=== PATIENT | male | born 1980 | race Caucasian/White ===

== ENCOUNTER 2025-07-14 10:13 | Day surgery (SDC) | payer BC, SELFPAY ==
--- NOTE | 2025-07-10 07:11 | EXP.HP ---
History of Present Illness *Admission Date: 07/14/25 *History of present illness: Mr. Faria is a 44-year-old gentleman who is here for diagnostic EGD. The patient does report epigastric abdominal pain. He did have panendoscopy in 2014 and at that time was diagnosed with H. pylori. He underwent antibiotic treatment for the H. pylori and failed to eradicate. More recently, he had been following with Dr. Daniel Albarran and had multiple positive testing for H. pylori and was seen by infectious disease for recurrent/resistant H. pylori. He does have occasional heartburn/reflux symptoms and takes omeprazole as needed. At the time of his colonoscopy in 2014, he had no polyps and will not need screening until age 47. The examination is deemed medically necessary for diagnostic EGD. The patient has been seen, interviewed and examined prior to the procedure by both myself and the anesthesia provider. [facility] Disclaimer: The information contained in this section may have been updated after the patient was seen, as this information can be updated by other users. Medical History Scoliosis Surgical History Hx of appendectomy History of spinal fusion Family History Grandmother Diabetes Grandmother Cancer Grandmother Heart problem Kidney disease Social History (Updated 07/14/25 @ 11:54 by Yunier Maurer CRNA) Smoking Status: Current every day smoker tobacco type: e-cigarettes alcohol intake: never substance use type: denies use current occupational status: employed Travel in the last 8 weeks?: None Have you lived/traveled outside [place] in past 30 days?: No Contact w/someone who lives/traveled outside [place] past 30 days?: No Exposure to someone with infectious disease in past 14 days?: No Do you have a fever (greater than 100.4 F or 38 C)?: No Have you tested positive for COVID-19?: No Exposed to someone with COVID-19 in past 14 days?: No Do you have a sore throat?: No Do you have a cough?: No Do you have any weakness?: No Are you experiencing any nausea/vomitting?: No Do you have any diarrhea?: No Are you experiencing any unusual bleeding?: No Do you have any muscle aches/pain?: No Do you have any abdominal pain?: No Are you experiencing loss of taste or smell?: No Review of Systems Review of Systems Review of systems (narrative): Negative *Cardiovascular Comments: Negative *Gastrointestinal Comments: Negative *Genitourinary Comments: Negative *Musculoskeletal Comments: Negative *Neurologic Comments: Negative Meds Home Medications and Allergies Home Medications ?Medication ?Instructions ?Recorded ?Confirmed ?Type aspirin 81 mg tablet 81 mg PO DAILY 05/19/25 07/14/25 History atorvastatin 20 mg tablet 20 mg PO DAILY 07/11/25 07/14/25 History New Prescriptions to Start Prescriptions: Allergies Allergy/AdvReac Type Severity Reaction Status Date / Time clarithromycin AdvReac Severe Vomiting Verified 07/14/25 11:18 Exam *Routine HEENT Exam Head: Present normocephalic Eye: Present EOMI and PERRL ENT: Present mucous membranes moist *Routine Neck Exam Neck: Present supple *Routine Respiratory Exam Respiratory: Present CTA bilaterally *Routine Cardiovascular Exam Cardiovascular: Present RRR *Routine Abdominal Exam Abdominal: Present soft and normoactive bowel sounds; Absent tenderness *Routine Rectal Exam Rectal:: deferred *Routine Genitalia Exam Genitalia:: deferred *Routine Extremities Exam Extremities: Absent cyanosis, clubbing or edema *Routine Skin Exam Skin: Present warm; Absent rash *Routine Neurological Exam Neurological: Present alert and oriented X3 Assessment and Plan *Assessment and plan (1) Epigastric pain: Status: Acute Category: Medical Code(s): R10.13 - Epigastric pain (2) History of Helicobacter pylori infection: Status: Acute Category: Medical Code(s): Z86.19 - Personal history of other infectious and parasitic diseases Plan A/P: 1. Epigastric pain with history of resistant H. pylori infection is the preprocedural diagnosis. The patient will be anesthetized/sedated using MAC sedation. The patient has been seen and examined. Cardiac and lung assessment prior to the examination is stable. Proceed with planned diagnostic EGD.
[2025-07-11 11:54] VITALS: BMI 21.1
--- NOTE | 2025-07-14 07:20 | HMH.PROCNOTE ---
[facility] Procedure Note Date: 07/14/25 Time: 12:59 Procedure Note:: Upper Endoscopy Procedure Report: Esophagogastroduodenoscopy with cold biopsies Endoscopost: Jovan Tran II, MD Referring Physician: Dr. Aguiar Date of Procedure: July 14, 2025 Equipment: Olympus GIF-1100 standard upper endoscope Sedation: MAC sedation Indications: Mr. Faria is a 44-year-old gentleman who is here for diagnostic EGD. The patient does get some right upper quadrant abdominal pain intermittently. He does report rare heartburn. He has no dysphagia. He did have panendoscopy in 2014 (Dr. Griffin in [place]) and at that time was diagnosed with H. pylori. He underwent antibiotic treatment for the H. pylori and failed to eradicate. More recently, he had been following with Dr. Daniel Albarran and had multiple positive testing for H. pylori (by H. pylori stool testing and H. pylori breath testing) and was seen by infectious disease for recurrent/resistant H. pylori. He does have occasional heartburn/reflux symptoms and takes omeprazole as needed. At the time of his colonoscopy in 2014, he had no polyps and will not need screening until age 47. The examination is deemed medically necessary for diagnostic EGD. Procedure: Prior to the procedure, a history and physical exam was performed, and patient's medications and allergies were reviewed. The risks, benefits and alternatives of the sedation and procedure were discussed with the patient. All questions were answered and informed consent was obtained. The patient was brought to the procedure room. Patient identification and proposed procedure were verified by the physician and the nurse. The patient was placed in a left lateral decubitus position and the scope was passed under direct vision. Throughout the procedure, the patient's blood pressure, pulse, and oxygen saturations were monitored continuously. The upper GI endoscopy was accomplished without difficulty. The patient tolerated the procedure well. Findings: The scope was passed directly into the upper esophagus and advanced to the third portion of the duodenum. The post bulbar duodenum and duodenal bulb were normal with normal mucosa and conniventes. The scope was withdrawn through a normal duodenal bulb and pylorus into the stomach. There was bile reflux with minimal linear antral gastropathy. The body and fundus of the stomach were normal and there was no evidence of chronic gastritis. There is no mosaic or reticular pattern and 4 cold biopsies were taken along the lesser curvature and incisura to rule out H. pylori. Upon retroflexion there was a small 2 cm hiatal hernia. The scope was then withdrawn into the esophagus. There was no evidence of reflux esophagitis or Mojica's and the remainder of the esophageal mucosa was normal. Impression: 1. Bile reflux with minimal linear antral gastropathy Plan: There was no evidence of chronic gastritis or mucosal pattern suggestive of H. pylori. I will follow-up the biopsies to determine whether he does have H. pylori.
[2025-07-14 11:20] VITALS: BP 123/84; PULSE 73; RESP 16; TEMP 36.6; BMI 21.1
[2025-07-14] MEDS: LACTATED RINGERS 1000ML 1,000 ML 50 ML IV (11:29)
--- NOTE | 2025-07-14 11:52 | EXP.ANES.CKL ---
[facility] Disclaimer: The information contained in this section may have been updated after the patient was seen, as this information can be updated by other users. Medical History Scoliosis Surgical History Hx of appendectomy History of spinal fusion Family History Grandmother Diabetes Grandmother Cancer Grandmother Heart problem Kidney disease Social History Smoking Status: Current every day smoker tobacco type: e-cigarettes alcohol intake: never substance use type: denies use current occupational status: employed Travel in the last 8 weeks?: None [facility] Anesthesia Checklist Patient Identification Patient Identification: Arm Band and Family Structural Data Admitted From: Home Planned Operative Procedure/s: EGD Consent for Planned Operative Procedure(s) Verified: Yes Verified Documents: Surgical Consent and History and Physical NPO Status Verified Time NPO: 00:00 Additional verifications Patient : No Anesthesia Reactions: No Hx Blood Transfusions: No Blood Transfusion Reaction: No Cephalosporin Allergy: No Previous Colonoscopy: Yes Airway Assessment Mallampati Score:: Class II C-Spine Mobility Assessed: Yes TMJ Mobility Assessed: Yes Dentition: Edentulous Neurological Assessment Level of Consciousness: Awake, Alert, Appropriate and Follows Commands Hx Seizures: No Numbness or tingling in extremities: No Anesthesia Plan Anesthesia Risk discussed: Yes ASA Class: II Anesthesia Type: MAC Preoperative Comments Pre-Operative Comments: PONV
[2025-07-14 13:02] VITALS: BP 108/70; PULSE 89; RESP 20; TEMP 36.6; O2SAT 94
[2025-07-14 13:17] VITALS: BP 100/65; PULSE 72; RESP 20; TEMP 36.6; O2SAT 95
[2025-07-14 13:32] VITALS: BP 104/70; PULSE 63; RESP 20; TEMP 36.6; O2SAT 100
== END 2025-07-14 13:40 | disposition home or self-care (01) ==
PROVIDERS: Visit Provider Internal Medicine Gastroenterology
PROC: 0DJ08ZZ Inspection of Upper Intestinal Tract, Via Natural or Artificial Opening Endoscopic (ICD-10-PCS; CPT 43239; principal; 2025-07-14 13:00)
DX: K21.9 Gastro-esophageal reflux disease without esophagitis (principal); K31.89 Other diseases of stomach and duodenum; K44.9 Diaphragmatic hernia without obstruction or gangrene; Z86.19 Personal history of other infectious and parasitic diseases; F17.290 Nicotine dependence, other tobacco product, uncomplicated; Z79.82 Long term (current) use of aspirin; Z79.02 Long term (current) use of antithrombotics/antiplatelets; Z88.1 Allergy status to other antibiotic agents
CPT/HCPCS: 43239; J2003; J2704; J7120